=== PATIENT | male | born 1970 | race Caucasian/White ===

== ENCOUNTER 2017-03-09 11:09 | Observation (INO) | payer BC, MEDICAID ==
[2017-03-09] MEDS ORDERED: Sodium Chloride 0.9% 2.5 ML Syringe FLUSH PRN ×2 (11:19→15:04)
[2017-03-09] MEDS ORDERED: Nitroglycerin 2% Oint 1 GM UD Packet TOP ONE (11:19)
[2017-03-09] MEDS ORDERED: Aspirin 81 MG Tab.Chew PO ONE (11:19)
[2017-03-09] MEDS ORDERED: Sodium Chloride 0.9% 10 ML Syringe FLUSH PRN ×2 (11:19→15:04)
--- NOTE | 2017-03-09 11:21 | EDM.PDOC ---
ED HPI GENERAL MEDICAL PROBLEM - General Chief Complaint: Chest Pain Stated Complaint: SHORTNESS OF BREATHE,CHEST PAIN Time Seen by Provider: 03/09/17 11:13 - History of Present Illness INITIAL COMMENTS - FREE TEXT/NARRATIVE: HISTORY AND PHYSICAL: History of present illness: Patient 46-year-old white male who presents with chest pain 8 days worse over last 24 hours with associated shortness of breath and diaphoresis this is vaguely described as normal associated palpitations states he had similar episodes in the past and seen as outpatient clinic he did not seek any more definitive care due to financial challenges prior he is still a smoker. Review of systems: As per history of present illness and below otherwise all systems reviewed and negative. Past medical history: As per history of present illness and as reviewed below otherwise noncontributory. Surgical history: As per history of present illness and as reviewed below otherwise noncontributory. Social history: No reported history of drug or alcohol abuse. Family history: As per history of present illness and as reviewed below otherwise noncontributory. Physical exam: HEENT: Atraumatic, normocephalic, pupils reactive, negative for conjunctival pallor or scleral icterus, mucous membranes moist, throat clear, neck supple, nontender, trachea midline. Lungs: Clear to auscultation, breath sounds equal bilaterally, chest nontender. Heart: S1S2, regular, negative for clicks, rubs, or JVD. Abdomen: Soft, nondistended, nontender. Negative for masses or hepatosplenomegaly. Negative for costovertebral tenderness. Pelvis: Stable nontender. Genitourinary: Deferred. Rectal: Deferred. Extremities: Atraumatic, negative for cords or calf pain. Neurovascular unremarkable. Neuro: Awake, alert, oriented. Cranial nerves II through XII unremarkable. Cerebellum unremarkable. Motor and sensory unremarkable throughout. Exam nonfocal. Diagnostics: CBC CMP PT/INR troponin chest x-ray EKG Therapeutics: IV O2 monitor aspirin 324 mg by mouth Nitropaste 1 inch Impression: #1 chest pain Definitive disposition and diagnosis as appropriate pending reevaluation and review of above. - Related Data Allergies Allergy/AdvReac Type Severity Reaction Status Date / Time Penicillins Allergy Hives Verified 03/09/17 12:02 Home Meds: Home Meds Docusate Sodium [Stool Softener] 100 mg PO BID PRN 08/10/16 [History] Hydrocortisone Acetate [Anusol-Hc] 1 supp RECTAL ASDIRECTED 08/10/16 [History] Lisinopril/Hydrochlorothiazide [Lisinopril-Hctz 20-12.5 mg Tab] 1 tab PO DAILY 08/10/16 [History] Multivitamin [Multivitamins] 1 tab PO DAILY 08/10/16 [History] NIFEdipine [Nifedipine] 1 applic RECTAL ASDIRECTED 08/10/16 [History] Sertraline HCl 100 mg PO DAILY 08/10/16 [History] Past Medical History HEENT History: Reports: None Cardiovascular History: Reports: Hypertension Respiratory History: Reports: Sleep Apnea Psychiatric History: Reports: Anxiety, Depression Endocrine/Metabolic History: Reports: Obesity/BMI 30+ - Past Surgical History Head Surgeries/Procedures: Reports: None HEENT Surgical History: Reports: Tonsillectomy GI Surgical History: Reports: Colonoscopy Social & Family History - Tobacco Use Smoking Status *Q: Current Every Day Smoker Years of Tobacco use: 28 Packs/Tins Daily: 2 - Recreational Drug Use Drug Use in Last 12 Months: No ED ROS GENERAL - Review of Systems Review Of Systems: ROS reveals no pertinent complaints other than HPI. ED EXAM, GENERAL - Physical Exam Exam: See Below (See dictation) Course - Vital Signs Last Recorded V/S: Last Vital Signs Temp 36.6 C 03/09/17 11:15 Pulse 95 03/09/17 11:15 Resp 20 03/09/17 11:15 BP 153/100 H 03/09/17 11:15 Pulse Ox 95 03/09/17 11:15 - Orders/Labs/Meds Orders: Active Orders 24 hr Category Date Time Status Cardiac Monitoring [RC] . DIRECTED Care 03/09/17 11:18 Active EKG Documentation Completion [RC] STAT Care 03/09/17 11:18 Active Oxygen Therapy, ED [RC] ASDIRECTED Care 03/09/17 11:18 Active Pulse Oximetry [RC] ASDIRECTED Care 03/09/17 11:18 Active Chest 1V Frontal [CR] Stat Exams 03/09/17 11:19 Ordered COMPREHENSIVE METABOLIC PN,CMP [CHEM] Stat Lab 03/09/17 11:20 Received UA W/MICROSCOPIC [URIN] Stat Lab 03/09/17 11:19 Uncollected Sodium Chloride 0.9% [Normal Saline] 1,000 ml Med 03/09/17 11:30 Active IV STAT Sodium Chloride 0.9% [Saline Flush] Med 03/09/17 11:19 Active 10 ml FLUSH ASDIRECTED PRN Sodium Chloride 0.9% [Saline Flush] Med 03/09/17 11:19 Active 2.5 ml FLUSH ASDIRECTED PRN Saline Lock Insert [OM.PC] Stat Oth 03/09/17 11:18 Ordered Medication Orders Sodium Chloride (Normal Saline) 1,000 mls @ 125 mls/hr IV STAT ELVIS Last Admin: 03/09/17 11:34 Dose: 125 mls/hr Sodium Chloride (Saline Flush) 10 ml FLUSH ASDIRECTED PRN PRN Reason: Keep Vein Open Sodium Chloride (Saline Flush) 2.5 ml FLUSH ASDIRECTED PRN PRN Reason: Keep Vein Open Labs: Laboratory Tests 03/09/17 03/09/17 03/09/17 Range/Units 11:20 11:20 11:20 WBC 14.10 H (4.0-11.0) K/uL RBC 5.59 (4.50-5.90) M/uL Hgb 17.3 H (13.0-17.0) g/dL Hct 50.1 H (38.0-50.0) % MCV 89.6 (80.0-98.0) fL MCH 30.9 (27.0-32.0) pg MCHC 34.5 (31.0-37.0) g/dL RDW Std Deviation 46.7 (28.0-62.0) fl RDW Coeff of Smita 14 (11.0-15.0) % Plt Count 271 (150-400) K/uL MPV 9.10 (7.40-12.00) fL Neut % (Auto) 67.8 (48.0-80.0) % Lymph % (Auto) 20.0 (16.0-40.0) % [place]comb % (Auto) 9.4 (0.0-15.0) % Eos % (Auto) 2.5 (0.0-7.0) % Baso % (Auto) 0.3 (0.0-1.5) % Neut # (Auto) 9.6 H (1.4-5.7) K/uL Lymph # (Auto) 2.8 H (0.6-2.4) K/uL [place]comb # (Auto) 1.3 H (0.0-0.8) K/uL Eos # (Auto) 0.4 (0.0-0.7) K/uL Baso # (Auto) 0.0 (0.0-0.1) K/uL Nucleated RBC % 0.0 /100WBC Nucleated RBCs # 0 K/uL INR 0.93 (0.86-1.11) Troponin I (0.0-0.29) NG/ML B-Natriuretic Peptide < 15 (<100) PG/ML 03/09/17 Range/Units 11:20 WBC (4.0-11.0) K/uL RBC (4.50-5.90) M/uL Hgb (13.0-17.0) g/dL Hct (38.0-50.0) % MCV (80.0-98.0) fL MCH (27.0-32.0) pg MCHC (31.0-37.0) g/dL RDW Std Deviation (28.0-62.0) fl RDW Coeff of Smita (11.0-15.0) % Plt Count (150-400) K/uL MPV (7.40-12.00) fL Neut % (Auto) (48.0-80.0) % Lymph % (Auto) (16.0-40.0) % Lipscomb % (Auto) (0.0-15.0) % Eos % (Auto) (0.0-7.0) % Baso % (Auto) (0.0-1.5) % Neut # (Auto) (1.4-5.7) K/uL Lymph # (Auto) (0.6-2.4) K/uL Lipscomb # (Auto) (0.0-0.8) K/uL Eos # (Auto) (0.0-0.7) K/uL Baso # (Auto) (0.0-0.1) K/uL Nucleated RBC % /100WBC Nucleated RBCs # K/uL INR (0.86-1.11) Troponin I < 0.10 (0.0-0.29) NG/ML B-Natriuretic Peptide (<100) PG/ML Meds: Medications Generic Name Dose Route Start Last Admin Trade Name Alexsander PRN Reason Stop Dose Admin Sodium Chloride 1,000 mls @ 125 mls/hr 03/09/17 11:30 03/09/17 11:34 Normal Saline IV 125 mls/hr STAT ELVIS Administration Sodium Chloride 10 ml 03/09/17 11:19 Saline Flush FLUSH ASDIRECTED PRN Keep Vein Open Sodium Chloride 2.5 ml 03/09/17 11:19 Saline Flush FLUSH ASDIRECTED PRN Keep Vein Open Discontinued Medications Generic Name Dose Route Start Last Admin Trade Name Alexsander PRN Reason Stop Dose Admin Aspirin 324 mg 03/09/17 11:19 03/09/17 11:31 Aspirin PO 03/09/17 11:20 324 mg ONETIME ONE Administration Nitroglycerin 1 gm 03/09/17 11:19 03/09/17 11:30 Nitro-Bid 2% TOP 03/09/17 11:20 1 gm ONETIME ONE Administration Departure - Departure Time of Disposition: 12:05 Disposition: Refer to Observation Condition: Good Clinical Impression: Chest pain - Discharge Information Forms: ED Department Discharge - My Orders Last 24 Hours: My Active Orders 03/09/17 11:18 Cardiac Monitoring [RC] . DIRECTED EKG Documentation Completion [RC] STAT Oxygen Therapy, ED [RC] ASDIRECTED Pulse Oximetry [RC] ASDIRECTED Saline Lock Insert [OM.PC] Stat 03/09/17 11:19 Chest 1V Frontal [CR] Stat UA W/MICROSCOPIC [URIN] Stat Sodium Chloride 0.9% [Saline Flush] 10 ml FLUSH ASDIRECTED PRN Sodium Chloride 0.9% [Saline Flush] 2.5 ml FLUSH ASDIRECTED PRN 03/09/17 11:20 COMPREHENSIVE METABOLIC PN,CMP [CHEM] Stat 03/09/17 11:30 Sodium Chloride 0.9% [Normal Saline] 1,000 ml IV STAT - Assessment/Plan Last 24 Hours: My Active Orders 03/09/17 11:18 Cardiac Monitoring [RC] . DIRECTED EKG Documentation Completion [RC] STAT Oxygen Therapy, ED [RC] ASDIRECTED Pulse Oximetry [RC] ASDIRECTED Saline Lock Insert [OM.PC] Stat 03/09/17 11:19 Chest 1V Frontal [CR] Stat UA W/MICROSCOPIC [URIN] Stat Sodium Chloride 0.9% [Saline Flush] 10 ml FLUSH ASDIRECTED PRN Sodium Chloride 0.9% [Saline Flush] 2.5 ml FLUSH ASDIRECTED PRN 03/09/17 11:20 COMPREHENSIVE METABOLIC PN,CMP [CHEM] Stat 03/09/17 11:30 Sodium Chloride 0.9% [Normal Saline] 1,000 ml IV STAT
[2017-03-09] MEDS ORDERED: Sodium Chloride 0.9% 1,000 ML IV SCH (11:30)
[2017-03-09 12:01] LABS: CHLORIDE,CL 106 mmol/L (98-110); SODIUM,NA 139 mmol/L (136-146)
[2017-03-09] MEDS ORDERED: Acetaminophen 325 MG Tab PO PRN (15:00)
[2017-03-09] MEDS ORDERED: Iopamidol 755 MG/ML 500 ML Multipack Bottle IVPUSH STA (16:08)
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
--- NOTE | 2017-03-09 17:52 | CR ---
EXAM DATE: 03/09/17 PATIENT'S AGE: 46 Patient: MELANI SPENCER Facility: [place], [place] Site . Site : 1970 Study: XRay Chest [id number]/5/2017 12:16:00 PM Ordering Physician: Lakeisha Steele Final Report: INDICATION: PAIN, SOB CHEST, ONE VIEW An AP radiograph of the chest was performed. Comparison: No previous studies are currently available for comparison. The lungs appear clear and no pleural effusions are identified. The cardiomediastinal silhouette and pulmonary vasculature appear normal, as do the visualized bones. IMPRESSION: No acute intrathoracic abnormality identified. ALICE MORALES MD [employer] Dictated by: Armond Morales MD @ 03/09/2017 12:29:34 (Electronic Signature) Report Signed by Proxy. [facility]
[2017-03-10 04:55] VITALS: BP 126/63
[2017-03-10 05:37] LABS: CHLORIDE,CL 103 mmol/L (98-110); SODIUM,NA 137 mmol/L (136-146)
[2017-03-10] MEDS ORDERED: FLUTICASONE INH SCH (09:00)
[2017-03-10] MEDS ORDERED: Enoxaparin 40 MG/0.4 ML Syringe SUBCUT SCH (09:00)
[2017-03-10] MEDS ORDERED: VILANTEROL INH SCH (09:00)
[2017-03-10] MEDS ORDERED: Lisinopril 10 MG Tab PO SCH (09:00)
[2017-03-10] MEDS ORDERED: Hydrochlorothiazide 12.5 MG Cap PO SCH (09:00)
--- NOTE | 2017-03-10 14:36 | CT ---
EXAM DATE: 03/09/17 PATIENT'S AGE: 46 Patient: MELANI SPENCER Facility: [place], [place] Site . Site : 1970 Study: CT Chest Angio [id number]/5/2017 5:02:58 PM Ordering Physician: Joseph Mcgowan Final Report: INDICATION: Shortness of breath, question PE. TECHNIQUE : CT scan of the chest. CTA PE protocol. IV contrast. IV Contrast: Isovue 370 50 mL Please note that all CT scans at this facility use dose modulation, iterative reconstruction and/or weight-based dosing when appropriate to reduce radiation dose to as low as reasonably achievable(ALARA). 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 Pulmonary Arteries: No focal filling defects. Thoracic Aorta: 3 vessel aortic arch. Ascending and descending thoracic aorta normal in caliber. No aortic dissection. Heart and Mediastinum: Calcified coronary artery disease, predominantly involving the LAD. No pericardial effusion. Heart size normal. Calcified right hilar and paratracheal lymph nodes. Lungs and Pleura: Lungs are clear. No pleural effusion or pneumothorax. Chest Wall and Soft Tissues: Unremarkable. Thyroid Gland: Unremarkable. Upper Abdomen: Visualized upper abdomen unremarkable. Bones: No suspicious abnormality. IMPRESSION: 1. No acute pulmonary embolism. 2. Calcified coronary artery disease. Lungs clear. Dictated by Carlos Hendrickson MD @ 03/09/2017 5:29:06 PM Dictated by: Carlos Hendrickson MD @ 03/09/2017 17:29:13 (Electronic Signature) Report Signed by Proxy. [facility]
== END 2017-03-10 07:50 | disposition home or self-care (01) ==
LOC: MW.ED 11:09 → MW.MS 12:06 → UNDOADMOB 12:25
PROVIDERS: ADMIT Internal Medicine; ATTEND Internal Medicine
DX: R07.9 Chest pain, unspecified (principal); R06.02 Shortness of breath; I10 Essential (primary) hypertension; G47.30 Sleep apnea, unspecified; F41.9 Anxiety disorder, unspecified; F32.9 Major depressive disorder, single episode, unspecified; F17.210 Nicotine dependence, cigarettes, uncomplicated; Z88.0 Allergy status to penicillin; Z79.51 Long term (current) use of inhaled steroids; Z79.899 Other long term (current) drug therapy; Z90.89 Acquired absence of other organs; Z98.890 Other specified postprocedural states
CPT/HCPCS: 36415; 71010; 71275; 80048; 80053; 80305; 81001; 83880; 84484; 85025; 85610; 93005; 96360; 96361; 99285; A9270; G0378; J7040; Q9967; 99283

== ENCOUNTER 2019-09-24 14:10 | Emergency (ER) | payer OTHER, BC ==
[2019-09-24 14:23] VITALS: BP 129/84; PULSE 100
[2019-09-24] MEDS ORDERED: Clindamycin Phosphate in D5W 600 MG in Premix Bag 1 BAG IV ONE ×2 (14:45)
[2019-09-24 15:11] LABS: BLOOD UREA NITROGEN,BUN 11 mg/dL (7.0-18.0); CARBON DIOXIDE,CO2 24.9 mmol/L (21.0-32.0); CHLORIDE,CL 103 mmol/L (98-107); GLUCOSE RANDOM 105 mg/dL (74-106); POTASSIUM,K 3.7 mmol/L (3.5-5.1); SODIUM,NA 139 mmol/L (136-148)
--- NOTE | 2019-09-24 15:20 | CR ---
Right hand: 3 views the right hand were obtained. Comparison: No previous right hand study. Deformity involving the base of the fifth metacarpal is noted most likely representing old healed fracture deformity. Soft tissue injury appears to be present within the distal fourth finger. No acute fracture, dislocation or other bony abnormality is seen. Impression: 1. Old fracture deformity within the base of the right fifth metacarpal. 2. Soft tissue injury. 3. Right hand exam is otherwise unremarkable. Diagnostic code #2 Study was dictated in [place] Standard Time
--- NOTE | 2019-09-24 15:20 | CR ---
Left hand: 3 views left hand were obtained. Comparison: No prior left hand imaging. Soft tissue injury is seen within the distal third finger. Metallic foreign bodies are noted within the base of the third finger which appear to be old. No acute fracture, dislocation or other bony abnormality is seen. Impression: 1. Soft tissue injury. 2. Old appearing metallic foreign bodies within the soft tissues involving the base of the left third finger. 3. No acute bony abnormality is appreciated. Diagnostic code #2 Study was dictated in [place] Standard Time
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
[2019-09-24] MEDS ORDERED: Bacitracin Oint 1 GM U/D Packet ONE (16:48)
== END 2019-09-24 17:03 | disposition home or self-care (01) ==
LOC: MW.ED 14:10
DX: S67.193A Crushing injury of left middle finger, initial encounter (principal); S61.214A Laceration without foreign body of right ring finger without damage to nail, initial encounter; I10 Essential (primary) hypertension; F41.9 Anxiety disorder, unspecified; F32.9 Major depressive disorder, single episode, unspecified; E66.9 Obesity, unspecified; Z68.42 Body mass index [BMI] 45.0-49.9, adult; F17.210 Nicotine dependence, cigarettes, uncomplicated; Z88.0 Allergy status to penicillin; Z79.899 Other long term (current) drug therapy; W23.0XXA Caught, crushed, jammed, or pinched between moving objects, initial encounter
CPT/HCPCS: 12002; 36415; 73130; 80048; 85025; 96365; 99283; J2001; S0077; 12001; J3490

== ENCOUNTER 2019-11-08 20:34 | Emergency (ER) | payer BC, OTHER ==
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
[2019-11-08] MEDS ORDERED: Bacitracin Oint 1 GM U/D Packet TOP ONE (21:17)
[2019-11-08 21:39] VITALS: BP 110/63; PULSE 90
== END 2019-11-08 21:45 | disposition home or self-care (01) ==
LOC: MW.ED 20:34
DX: S61.210A Laceration without foreign body of right index finger without damage to nail, initial encounter (principal); S61.212A Laceration without foreign body of right middle finger without damage to nail, initial encounter; I10 Essential (primary) hypertension; F41.9 Anxiety disorder, unspecified; F32.9 Major depressive disorder, single episode, unspecified; E66.9 Obesity, unspecified; F17.210 Nicotine dependence, cigarettes, uncomplicated; Z88.0 Allergy status to penicillin; Z79.899 Other long term (current) drug therapy; Z68.41 Body mass index [BMI] 40.0-44.9, adult; X99.9XXA Assault by unspecified sharp object, initial encounter
CPT/HCPCS: 99282